=== PATIENT | female | born 1960 | race Caucasian/White ===

== ENCOUNTER → 2020-12-03 | Outpatient (CLI) | payer OTHER ==
[~2020-12-03] MED LIST: CELEXA20 MG PO; CENTRUM SILVER1 EAC4 PO; PRAVASTATIN SOD10 MG PO; VENTOLIN HFA 66.7 GM INH; VITAMIN D350 MC3 PO; ZYRTEC10 MG PO
== END ==
LOC: KOH-I 10:12
DX: M21.612 Bunion of left foot (principal); M19.072 Primary osteoarthritis, left ankle and foot; M79.89 Other specified soft tissue disorders
CPT/HCPCS: 73630

== ENCOUNTER → 2020-12-13 | Outpatient (CLI) | payer OTHER | LOC: EXRD 12-12 11:00 | DX: Z01.818 Encounter for other preprocedural examination (principal) | CPT/HCPCS: 93926 ==

== ENCOUNTER → 2020-12-24 | Outpatient (CLI) | payer OTHER ==
[2020-12-24 12:28] LABS: HEMOGLOBIN 14.2 gm/dl (12.3-15.3); RED BLOOD COUNT 4.37 M/UL (4.00-5.10); WHITE BLOOD COUNT 6.3 K/UL (4.5-11.0)
== END ==
LOC: OPSV2 11:00
PROVIDERS: Podiatrist Foot & Ankle Surgery
DX: Z01.812 Encounter for preprocedural laboratory examination (principal); M21.622 Bunionette of left foot; L84 Corns and callosities
CPT/HCPCS: 36415; 85027

== ENCOUNTER → 2021-01-01 | Day surgery (SDC) | payer OTHER | END | disposition home or self-care (01) | LOC: OR 07:20 | DX: M21.6X2 Other acquired deformities of left foot (principal); E78.5 Hyperlipidemia, unspecified; F41.8 Other specified anxiety disorders; Z72.0 Tobacco use | CPT/HCPCS: 73630; J0690; J1100; J1885; J2250; J2405; J2704; J2795; J3010; J3370; J7120; Q4133 ==